=== PATIENT | female | born 1950 | race Caucasian/White ===

== ENCOUNTER → 2017-07-09 | Outpatient (CLI) | payer OTHER ==
[2015-07-27 20:13] VITALS: BP 161/88
[~2017-07-09] MED LIST: ASPI81TA44 PO; BENA40TA2 PO; CITA10TA4 PO; GUAN1TAB PO; HYDR12.58 PO; METO-239 PO; SIMV40TA3 PO
--- NOTE | 2017-07-09 09:30 | RAD ---
DATE: 07/09/2017 EXAM: DIGITAL SCREEN BILAT W/CAD HISTORY: Routine screening COMPARISON: 04/10/2016 This study was interpreted with the benefit of Computerized Aided Detection (CAD). The breast parenchyma is heterogeneously dense, which could reduce sensitivity of mammography. Breast parenchyma level C. FINDINGS: The fibroglandular pattern is heterogeneous in a somewhat nodular pattern. No new or enlarging breast densities are seen. There are scattered microcalcifications in both breasts. The distribution suggests a benign etiology. No suspicious microcalcifications have developed. IMPRESSION: Stable mammograms without evidence of malignancy. BI-RADS CATEGORY: 2 BENIGN FINDING(S) RECOMMENDED FOLLOW-UP: 12M 12 MONTH FOLLOW-UP PQRS compliance statement: Patient information was entered into a reminder system with a target due date for the next mammogram. Mammography is a sensitive method for finding small breast cancers, but it does not detect them all and is not a substitute for careful clinical examination. A negative mammogram does not negate a clinically suspicious finding and should not result in delay in biopsying a clinically suspicious abnormality. "Our facility is accredited by the [employer] Mammography [employer]."
== END | disposition home or self-care (01) ==
LOC: MAMMO 08:39
PROVIDERS: ATTEND Nurse Practitioner Family
DX: Z12.31 Encounter for screening mammogram for malignant neoplasm of breast (principal); Z87.891 Personal history of nicotine dependence
CPT/HCPCS: 77067

== ENCOUNTER → 2017-08-25 | Outpatient (CLI) | payer OTHER ==
[2015-07-27 20:13] VITALS: BP 161/88
--- NOTE | 2017-08-25 11:54 | RAD ---
Bone densitometry scan, 08/25/2017: History: Ovarian failure, smoker The lumbar spine and right hip were examined utilizing a DEXA technique. The bone mineral density in the lumbar spine as measured from the L1-L4 levels is 1.08 g/sq cm. This shows a T score of -0.8 which is in the normal range. The total T score at the right hip is -1.5 compatible with osteopenia. IMPRESSION: Osteopenia at the right hip.
--- NOTE | 2017-08-25 12:57 | RAD ---
CT chest without contrast 08/25/2017 CLINICAL INDICATION: Tobacco use 45 pack years. COMPARISON: None. TECHNIQUE: Multiple CT images of the chest were obtained without contrast according to standard protocol. *One or more of the following individualized dose reduction techniques were utilized for this examination: 1. Automated exposure control. 2. Adjustment of the mA and/or kV according to patient size. 3. Use of iterative reconstruction technique. FINDINGS: Heart size is normal without definite pericardial effusion. The thoracic aorta is normal in caliber with mild calcified atheromatous disease. Coronary artery calcifications are noted at the LAD. No axillary, mediastinal or hilar lymphadenopathy. The central airways are patent. There are diffuse small bilateral centrilobular groundglass nodules. No pleural effusion, pneumothorax or focal consolidation. Minimal apical paraseptal emphysema. No suspicious noncalcified pulmonary nodules. There are no destructive osseous lesions. Limited images of the upper abdomen: Grossly unremarkable. IMPRESSION: 1. Bilateral tiny centrilobular groundglass nodules, likely respiratory bronchiolitis given history of tobacco use. 2. No suspicious noncalcified pulmonary nodules. 3. Coronary artery calcifications. Electronically signed by: Niraj Croft MD (08/25/2017 12:55 PM) [id number]
== END | disposition home or self-care (01) ==
LOC: CT 09:48
PROVIDERS: ATTEND Nurse Practitioner Family
DX: I25.10 Atherosclerotic heart disease of native coronary artery without angina pectoris (principal); M85.88 Other specified disorders of bone density and structure, other site; E28.39 Other primary ovarian failure; R91.8 Other nonspecific abnormal finding of lung field; Z78.0 Asymptomatic menopausal state; Z72.0 Tobacco use
CPT/HCPCS: 71250; 77080

== ENCOUNTER → 2019-10-18 | Outpatient (CLI) | payer MEDICARE ==
[2015-07-27 20:13] VITALS: BP 161/88
[~2019-10-18] MED LIST changes: -ASPI81TA44 PO; +ASPI81TA59 PO; -BENA40TA2 PO; +BENA40TA3 PO; +SIMV40TA18 PO; -SIMV40TA3 PO
--- NOTE | 2019-10-18 10:55 | RAD ---
EXAM: Dual energy x-ray absorptiometry (DEXA). HISTORY: Post menopausal screening. TECHNIQUE: Dual energy x-ray absorptiometry of the lumbar spine and the right hip was performed. T-score of average bone mineral density based was calculated based on standard deviations above or below the expected young adult normal value. Diagnostic definitions were established by the [employer] Organization. FINDINGS: The average bone mineral density associated with L1-L4 is 1.120 g/cm^2, corresponding with a T-score of -0.5. The average total bone mineral density associated with the right hip is 0.717 g/cm^2, corresponding with a T-score of -1.9. In comparison with the prior study of 08/25/2017, average bone mineral density at the lumbar spine has changed +3.4%, while the average density at the right hip has changed -6.4%. Refer to the worksheets for full detail. IMPRESSION: 1. Osteopenia. Average bone mineral density yields a T-score between -1.0 and -2.5. Fracture risk is increased. Electronically signed by: Allie Curtis MD (10/18/2019 10:53 AM) [id number]
--- NOTE | 2019-10-18 10:59 | RAD ---
CT LOW DOSE LUNG SCREENING Indication: Tobacco abuse Technique: Noncontrast CT imaging was performed of the chest as per low dose screening protocol, multiplanar reconstruction images submitted. One or more of the following individualized dose reduction techniques were utilized for this examination: 1. Automated exposure control 2. Adjustment of the mA and/or kV according to patient size 3. Use of iterative reconstruction technique. Comparison: August 25, 2017 Findings: There is some motion degradation. Small 3 to 4 mm posterior right upper lobe nodule image 93 series 2 is stable. 2 mm subpleural left upper lobe nodule image 44 series 2 is unchanged. There is a small 3 to 4 mm posterior right upper lobe nodule best seen image 131 series 2, not convincingly changed such as comparing sagittal and coronal images. There is no pleural or pericardial fluid, pneumothorax, infiltrate. There is some coronary calcification. Thoracic aortic caliber is within normal limits, some scattered plaque present. No new significantly enlarged nodes identified of the chest. Right precarinal node measuring about 7 mm short axis dimension is stable. There are again fat-containing bilateral Bochdalek hernias. IMPRESSION: 1. There are stable small pulmonary nodules as stated. No new suspicious pulmonary nodularity is identified. Lung RADS category 2, continued annual screening with low-dose CT in 12 months recommended. Electronically signed by: Angel Mosher MD (10/18/2019 10:56 AM) [id number]
--- NOTE | 2019-10-18 15:30 | RAD ---
EXAM: BILATERAL DIGITAL 3D SCREENING MAMMOGRAPHY. HISTORY: Routine mammographic screening. TECHNIQUE: Bilateral digital 3D and tomographic images were obtained in CC and MLO projections. Computer-aided detection was applied. COMPARISON: 07/09/2017, 04/10/2016. COMPOSITION: B. There are scattered areas of fibroglandular density. FINDINGS: There are no suspicious masses, microcalcifications or architectural distortion. The parenchymal pattern is stable. Scattered calcifications are benign. BI-RADS CATEGORY 2: Benign. RECOMMENDATION: 1. Routine screening mammography in one year. If mammography demonstrates dense breast tissue (heterogenously dense or extremely dense, category C or D), which could hide abnormalities, and if other risk factors for breast cancer have been identified, supplemental screening tests that may be suggested by the ordering physician may be of benefit. Dense breast tissue, in and of itself, is a relatively common condition. Therefore, this information is not provided to cause undue concern, but rather to raise awareness and to promote discussion with the referring physician regarding the presence of other risk factors, in addition to dense breast tissue. The results of this mammography examination is provided to the patient and referring physician. The patient should contact their referring physician if any questions or concerns exist regarding this report. PQRS compliance statement - Patient information was entered into a reminder system with a target due date for the next mammogram. "Our facility is accredited by the [employer] Mammography [employer]." Electronically signed by: Allie Curtis MD (10/18/2019 3:27 PM) [id number]
== END | disposition home or self-care (01) ==
LOC: DXRAD 10:04
PROVIDERS: ATTEND Registered Nurse
DX: Z12.31 Encounter for screening mammogram for malignant neoplasm of breast (principal); Z12.2 Encounter for screening for malignant neoplasm of respiratory organs; N64.89 Other specified disorders of breast; R91.8 Other nonspecific abnormal finding of lung field; I25.10 Atherosclerotic heart disease of native coronary artery without angina pectoris; M85.88 Other specified disorders of bone density and structure, other site; F17.210 Nicotine dependence, cigarettes, uncomplicated; Z78.0 Asymptomatic menopausal state
CPT/HCPCS: 77063; 77067; 77080; G0297

== ENCOUNTER → 2021-03-08 | Outpatient (CLI) | payer MEDICARE ==
[2015-07-27 20:13] VITALS: BP 161/88
--- NOTE | 2021-03-08 12:35 | RAD ---
EXAM: XR CHEST 2V 03/08/2021 9:20 AM CLINICAL INDICATION: Cough COMPARISON: CT lung screen 10/18/2019 TECHNIQUE: PA and lateral views of the chest FINDINGS: The heart and mediastinum are normal. Lungs are well-expanded and clear. No consolidatio n, pleural effusion, or pneumothorax. Pulmonary vascularity is normal. The thoracic skeleton is int act. IMPRESSION: No acute cardiopulmonary abnormality. Electronically signed by: Montserrat Grimaldo MD (03/08/2021 12:32 PM) [id number]
== END ==
LOC: RAD 09:15
PROVIDERS: ATTEND Physician Assistant Medical
DX: R05.8 Other specified cough (principal); Z72.0 Tobacco use
CPT/HCPCS: 71046

== ENCOUNTER → 2021-03-18 | Outpatient (CLI) | payer MEDICARE ==
[2015-07-27 20:13] VITALS: BP 161/88
--- NOTE | 2021-03-18 13:58 | RAD ---
Bilateral digital screening 2-D and 3-D (tomosynthesis) mammogram: Reason for examination: Routine screening. Comparison is made to previous study dated 07/09/2017. Bilateral mammograms in CC and oblique projections were obtained with 2-D imaging and 3-D tomosynthes is imaging and reviewed on the workstation. Interpretation was made with the benefit of CAD. Findings: Breast density: Category C. The breasts are heterogeneously dense, which may obscure small masses. There are no suspicious masses, malignant appearing calcifications or architectural distortion. There are scattered benign punctate calcifications which are not significantly changed. Impression: No evidence of malignancy. ASSESSMENT: BI-RADS 2. Benign findings. Recommendations: Routine screening mammograms. This patient's information has been entered into a reminder system for the patient to be notified wit h the results of her examination and a target date for the next mammogram. Your patient's mammogram demonstrates that she has dense breast tissue (breast density category C or D), which could hide abnormalities, and if she has other risk factors for breast cancer that have bee n identified, she might benefit from supplemental screening tests that may be suggested by you as her ordering physician. Dense breast tissue, in and of itself, is a relatively common condition. Therefo re, this information is not provided to cause undue concern, but rather to raise your awareness and t o promote discussion with your patient regarding the presence of other risk factors, in addition to d ense breast tissue. Electronically signed by: Little Adkins MD (03/18/2021 1:56 PM) [id number]
== END ==
LOC: MAMMO 08:21
PROVIDERS: ATTEND Physician Assistant Medical
DX: Z12.31 Encounter for screening mammogram for malignant neoplasm of breast (principal)
CPT/HCPCS: 77063; 77067